=== PATIENT | female | born 1985 | race African-American/Black ===

== ENCOUNTER 2017-02-22 19:27 | Emergency (ER) | payer SELFPAY ==
[~2017-02-22] VITALS: Ht 165.1 cm; Wt 81.6 kg
[2017-02-22 20:57] VITALS: BP 118/88; Ht 165.1 cm; Wt 81.6 kg
== END 2017-02-23 01:39 | disposition left against medical advice (07) ==
LOC: ED 19:27
DX: Z53.21 Procedure and treatment not carried out due to patient leaving prior to being seen by health care provider (principal)